=== PATIENT | female | born 1965 | race Caucasian/White ===

== ENCOUNTER 2022-03-08 15:39 | Emergency (ER) | payer OTHER ==
[~2022-03-08] VITALS: Ht 160 cm; Wt 62.6 kg
[~2022-03-08 15:39] MED LIST: CLARITIN10 M1; ZYRTEC10 M3
== END 2022-03-08 20:55 | disposition home or self-care (01) ==
LOC: ER 15:39
DX: R51.9 Headache, unspecified (principal)